=== PATIENT | male | born 2000 | race Hispanic/Latino ===

== ENCOUNTER 2018-10-26 19:15 | Emergency (ER) | payer SELFPAY ==
[~2018-10-26] VITALS: Ht 167.6 cm; Wt 66.8 kg
[2018-10-26 20:00] LABS: URINE BILIRUBIN - DIPSTICK NEGATIVE (NEGATIVE); URINE BLOOD DIPSTICK NEGATIVE (NEGATIVE); URINE COLOR YELLOW; URINE GLUCOSE - DIPSTICK NEGATIVE (NEGATIVE); URINE KETONE NEGATIVE (NEGATIVE); URINE LEUK ESTERASE NEGATIVE (NEGATIVE); URINE NITRITE - DIPSTICK NEGATIVE (Negative); URINE PH 6.5 (4.5-8.0); URINE PROTEIN - DIPSTICK NEGATIVE (NEG-TRACE); URINE SPECIFIC GRAVITY 1.025; URINE UROBILINOGEN - DIPSTICK 0.2 E.U./dL (0.2)
[2018-10-26 20:02] LABS: HEMATOCRIT 47.8 % (39.0-50.0); HEMOGLOBIN 16.9 g/dl (14.0-18.0); IMMATURE GRANULOCYTES 0.2 % (0.0-5.0); MEAN CELL VOLUME 90.4 fL CALC (80.0-100.0); MEAN CORPUSCULAR HGB 31.9 pG CALC (26.0-32.0); MEAN CORPUSCULAR HGB CONC 35.4 g/L CALC (32.0-36.0); NEUT# 1.98 thou/uL (1.82-7.42); RED BLOOD COUNT 5.29 mill/uL (4.70-6.10); RED CELL DISTRI WIDTH 12.1 % (11.5-15.5)
[2018-10-26 20:16] LABS: ALBUMIN 5.2 g/dL (3.2-5.0); ALKALINE PHOSPHATASE 92 u/l (38-126); AMYLASE 61 u/l (30-110); ANION GAP 17 (6-22 (CALC)); BILIRUBIN, TOTAL 0.5 mg/dL (0.0-1.4); BUN 15 mg/dL (9-20); BUN/CREATININE RATIO 17 (12-20 (CALC)); CARBON DIOXIDE 27 mmol/l (22-30); CHLORIDE 103 mmol/l (95-108); CREATININE 0.9 mg/dL (0.7-1.3); GFR > 60 ML/MIN (>=60 (CALC)); GFR FOR AFR.AMER. > 60 ML/MIN (>=60 (CALC)); LIPASE 94 u/l (23-300); POTASSIUM 3.9 mmol/l (3.5-5.1); SGOT/AST 38 u/l (17-59); SODIUM 142 mmol/l (137-146); TOTAL PROTEIN 8.2 g/dL (6.3-8.2)
[2018-10-26] MEDS ORDERED: MIRALAX3350 N1 PO (20:35)
[2018-10-26 21:00] VITALS: BP 121/66
== END 2018-10-26 21:27 | disposition home or self-care (01) | DRG 392 ==
LOC: ED 19:15
PROVIDERS: Emergency Medicine
DX: K59.00 Constipation, unspecified (principal)